=== PATIENT | female | born 1960 | race Caucasian/White ===

== ENCOUNTER 2024-08-01 15:10 | Inpatient (IN) | payer OTHER ==
[~2024-08-01] VITALS: Ht 167.6 cm; Wt 79.4 kg
[2024-08-01] VITALS (26 sets, daily range): BP systolic 87–153; BP diastolic 64–87
[2024-08-01] MEDS ORDERED: DULOXETINE HCL20 MG (15:25)
[2024-08-01] MEDS ORDERED: WELLBUTRIN150 M2 PO (15:26)
[2024-08-01 15:29] LABS: BASO% 0.8 % (0-3); EOS% 2.6 % (0-8); HEMOGLOBIN 13.7 g/dl (12.0-16.0); IMMATURE GRANULOCYTES 0.5 % (0.0-5.0); LYMPH% 14.9 % (15-41); MEAN CELL VOLUME 94.1 fL CALC (80.0-100.0); MEAN CORPUSCULAR HGB CONC 31.9 g/dL CAL (32.0-36.0); MONO% 9.7 % (2-13); NEUT# 5.99 thou/uL (2.00-7.15); NEUT% 71.5 % (42-76); RED BLOOD COUNT 4.57 mill/uL (4.20-5.60)
[2024-08-01 15:41] LABS: ALBUMIN 4.3 g/dL (3.2-5.0); ALKALINE PHOSPHATASE 57 u/l (38-126); ANION GAP 14 (6-22 (CALC)); BILIRUBIN, TOTAL 0.5 mg/dL (0.02-1.3); BUN 22 mg/dL (8-23); BUN/CREATININE RATIO 27 (12-20 (CALC)); CARBON DIOXIDE 23 mmol/l (22-30); CHLORIDE 109 mmol/l (95-108); CREATININE 0.8 mg/dL (0.5-1.0); ESTIMATED GFR 84 ML/MIN (>=90 (CALC)); LIPASE 43 u/l (23-300); SGOT/AST 26 u/l (9-36); SODIUM 143 mmol/l (137-146); TOTAL PROTEIN 6.9 g/dL (6.3-8.2)
--- NOTE | 2024-08-01 16:51 | NUR ---
DISCUSSED POC WITH PT.
[2024-08-01] MEDS ORDERED: ACETAMINOPHEN 325 MG/TAB PO PRN (19:50)
[2024-08-01] MEDS ORDERED: MAGNESIUM HYDROXIDE 30 ML UDC PO PRN (19:50)
[2024-08-01] MEDS ORDERED: MORPHINE SULFATE 4 MG/ML VIAL IV PRN (19:50)
[2024-08-01] MEDS ORDERED: NITROGLYCERIN 0.4 MG/TAB SL PRN (19:50)
[2024-08-01] MEDS ORDERED: Iopamidol 370 (Isovue) 76% 100 ML SDV IV SCH (20:35)
[2024-08-01] MEDS ORDERED: METOPROLOL TARTRATE 25 MG/TAB PO SCH (21:00)
[2024-08-01] MEDS ORDERED: ATORVASTATIN CALCIUM 40 MG/TAB PO SCH (21:00)
[2024-08-01] MEDS ORDERED: ENOXAPARIN SODIUM 40 MG/0.4 ML SYR SC SCH (21:00)
--- NOTE | 2024-08-01 21:04 | NUR ---
PT REPORT GIVEN TO RHIANNON ON [facility] FLOOR. PT TAKEN TO ROOM 278 WITH TELE #11 VIA WHEELCHAIR.
--- NOTE | 2024-08-01 21:47 | NUR ---
PATIENT ADMITTED TO [facility] ROOM 278 VIA WC. AMBULATED SELF TO BED IN ROOM WITHOUT DIFFICULTY. ALERT AND ORIENTED. ABLE TO MAKE NEEDS KNOWN. PRIMARY LANGUAGE IS DOMINICAN BUT IS ABLE TO COMMUNICATE WITH STAFF. ASSESSMENT COMPLETE. NO DISTRESS NOTED. NO COMPLAINTS OF CHEST PAIN. TELE IN PLACE. BM YESTERDAY. SKIN INTACT. SMALL DRY SCAB TO RIGHT CHEST AREA. NO EDEMA. ORIENTED TO ROOM, CALL DEAN AND SURROUNDINGS. FRESH ICE WATER AT BEDSIDE. DENIES NEEDING ANYTHING AT THIS TIME. BED IN LOW POSITION. CALL DEAN IN REACH.
--- NOTE | 2024-08-01 23:55 | NUR ---
PATIENT REMAINS RESTING IN BED. NO DISTRESS NOTED. NO COMPLAINTS OF CHEST PAIN. BED REMAINS IN LOW POSITION. CALL DEAN AND BELONGINGS IN REACH. PATIENT BROUGHT HOME CPAP WITH HER AND HAS IT ON.
[2024-08-02] VITALS (7 sets, daily range): BP systolic 120–137; BP diastolic 58–79
--- NOTE | 2024-08-02 04:39 | NUR ---
PATIENT REMAINS RESTING IN BED. DENIES NEEDING ANYTHING AT THIS TIME. BED REMAINS IN LOW POSITION. CALL DEAN IN REACH.
[2024-08-02 05:27] LABS: BASO% 0.6 % (0-3); EOS% 2.2 % (0-8); HEMATOCRIT 41.6 % (37.0-47.0); HEMOGLOBIN 13.6 g/dl (12.0-16.0); LYMPH% 25.3 % (15-41); MEAN CELL VOLUME 92.9 fL CALC (80.0-100.0); MEAN CORPUSCULAR HGB 30.4 pG CALC (26.0-32.0); MEAN CORPUSCULAR HGB CONC 32.7 g/dL CAL (32.0-36.0); MONO% 9.4 % (2-13); NEUT# 4.76 thou/uL (2.00-7.15); NEUT% 61.5 % (42-76); RED BLOOD COUNT 4.48 mill/uL (4.20-5.60); RED CELL DISTRI WIDTH 13.2 % (11.5-15.5)
[2024-08-02 05:47] LABS: BILIRUBIN, TOTAL 0.6 mg/dL (0.02-1.3); CREATININE 0.8 mg/dL (0.5-1.0); MAGNESIUM 2.2 mg/dL (1.6-2.3); POTASSIUM 4.4 mmol/l (3.5-5.1); TOTAL PROTEIN 6.4 g/dL (6.3-8.2)
[2024-08-02 05:59] LABS: CHOLESTEROL HDL RATIO 5.2 (<4.4 (CALC))
[2024-08-02] MEDS ORDERED: SODIUM CHLORIDE 0.9% 1,000 ML IV PRN (06:35)
--- NOTE | 2024-08-02 06:55 | NUR ---
REPORT RECEIVED FROM KRYSTLERN
[2024-08-02] MEDS ORDERED: DULOXETINE HCl 30 MG/CAP PO SCH (09:00)
[2024-08-02] MEDS ORDERED: buPROPion HCL 150 MG TAB SR PO SCH (09:00)
[2024-08-02] MEDS ORDERED: ASPIRIN 81 MG/TAB PO SCH (09:00)
[2024-08-02] MEDS ORDERED: CLOPIDOGREL BISULFATE 75 MG/TAB TAB PO SCH (09:00)
--- NOTE | 2024-08-02 09:00 | NUR ---
PT RESTING IN SEMI FOWLERS POSITION,A&O X3. PT DENIES ANY CURRENT PAIN OR DISCOMFORTS, PAIN SCALE AND REPORTING EDUCATED;ASSESSMENT COMPLETED;RESPIRATIONS EVEN AND UNLABORED ON RA,CLEAR LUNG SOUNDS;HOME CPAP AT BEDSIDE FOR QHS;ABDOMEN SOFT ON PALPATION AND ACTIVE IN ALL 4 QUADRANTS;STRONG PEDAL PULSES;SKIN INTACT;TELE MONITORING IN PLACE;EMS #18G TO LAC FLUSHED AND PATENT,SITE APPPEARS HEALTHY;PT DENIES ANY CURRENT NEEDS AND IS ENCOURAGED TO CALL FOR ASSISTANCE IF NEEDED;FALL PRECAUTIONS IN PLACE WITH BED IN THE LOWEST POSITION AND CALL LIGHT IN REACH;FREQUENT ROUNDS MADE.
--- NOTE | 2024-08-02 09:10 | NUR ---
CARDIOLOGY CONSULT COMPLETED AT THIS TIME- NOTIFIED.
--- NOTE | 2024-08-02 09:17 | NUR ---
AT BEDSIDE DISCUSSING POC WITH PT.
[2024-08-02] MEDS ORDERED: Heparin SODIUM (Porcine) 500 ML IV PRN (09:30)
[2024-08-02 10:00] LABS: ACT PARTIAL THROMBO TIME 23.4 SECONDS (20.0-32.5)
[2024-08-02 10:01] LABS: PROTHROMBIN TIME 10.7 SECONDS (9.0-12.5)
[2024-08-02] MEDS ORDERED: Heparin SODIUM (Porcine) 5,000 UNITS/ML SDV IV SCH (10:30)
--- NOTE | 2024-08-02 11:33 | NUR ---
HEPRAIN BOLUS OF 5000UNITS ADMINISTERED TO ABDOMEN SC PER ORDER. HEPRAIN LOW DOSE DRIP INITATED @ 950 TO EMS #18G TO LAC. VERIFICATION BY EVENS IRWIN WHEN INITATED. PT EDUCATED ON DRIP AND TO REPORT ANY S/S OF BLEEDING AND VERBALIZED UNDERSTANDING;FALL PRECAUTIONS REMAIN IN PLACE WITH CALL LIGHT IN REACH;FREQUENT ROUNDS MADE.
--- NOTE | 2024-08-02 12:21 | NUR ---
INFORMED MD BY CARDIOVASCULAR RADIOLOGIC TECHNOLOGIST RE: TROPONIN BEING 0.166
--- NOTE | 2024-08-02 14:33 | NUR ---
PT MEDICATED WITH TYLENOL 650MG PO FOR HEADACHE PAIN AT THIS TIME;FREQUENT ROUNDS MADE.
--- NOTE | 2024-08-02 15:16 | NUR ---
AT BEDSIDE DISCUSSING POC WITH PT.
[2024-08-02 15:47] LABS: ACT PARTIAL THROMBO TIME 34.6 SECONDS (20.0-32.5); PROTHROMBIN TIME 11.1 SECONDS (9.0-12.5)
--- NOTE | 2024-08-02 16:00 | NUR ---
PT RESTING IN SEMI FOWLERS POSITION WITH FAMILY AT BEDSIDE;RESPIRATIONS EVEN AND UNLABORED ON RA;PT REPORTS HEADACHE PAIN HAS SUBSIDED AT THIS TIME;TELE MONITORING IN PLACE;IV SITE TO LAC REMAINS PATENT INFUSING HEPRAIN DRIP PER ORDER; LAB RESULTS RECEIVED PT 11.1, INR 1.0, PTT 34.6. HEPRAIN DRIP TITRATED TO 1250 UNITS/HR PER HOSPITAL POLICY. TITRATION RATE VERIFIED WITH MOTOR CHECKER AND EVENS IRWIN. PT TO BE TRANSFERRED TO [facility] FOR HIGHER LEVEL OF CARE INCLUDING A CARDIAC CATH;PT WAS ACCEPTED BY FACILITY, WAITING ON BED ASSIGNMENT. PT DENIES ANY ADDITIONAL NEEDS AND IS ENCOURAGED TO CALL FOR ASSISTANCE IF NEEDED;CALL LIGHT IN REACH;FREQUENT ROUNDS MADE.
--- NOTE | 2024-08-02 19:15 | NUR ---
PATIENT OBSERVED SITTING UP IN BED. ALERT AND ABLE TO MAKE NEEDS KNOWN. ASSESSMENT COMPLETE. NO DISTRESS NOTED. NO COMPLAINTS OF CHEST PAIN. HEPARIN GTT REMAINS INFUSING PER FLOW SHEET. PATIENT DENIES NEEDING ANYTHING AT THIS TIME. BED REMAINS IN LOW POSITION. CALL DEAN IN REACH. AWAITING BED AT [facility].
--- NOTE | 2024-08-03 00:32 | NUR ---
PATIENT REMAINS RESTING IN BED. HOME CPAP ON. NO COMPLAINTS OF CHEST PAIN OR DISCOMFORT. NO SHORTNESS OF BREATH. HEPARIN GTT REMAINS INFUSING PER PROTOCOL.
[2024-08-03 03:17] LABS: BASO% 0.9 % (0-3); EOS% 4.3 % (0-8); HEMATOCRIT 45.5 % (37.0-47.0); HEMOGLOBIN 14.3 g/dl (12.0-16.0); IMMATURE GRANULOCYTES 1.2 % (0.0-5.0); LYMPH% 31.1 % (15-41); MEAN CELL VOLUME 95.6 fL CALC (80.0-100.0); MEAN CORPUSCULAR HGB CONC 31.4 g/dL CAL (32.0-36.0); MONO% 8.4 % (2-13); NEUT# 4.07 thou/uL (2.00-7.15); NEUT% 54.1 % (42-76); RED BLOOD COUNT 4.76 mill/uL (4.20-5.60); RED CELL DISTRI WIDTH 13.3 % (11.5-15.5)
[2024-08-03 03:44] LABS: ALBUMIN 4.2 g/dL (3.2-5.0); BILIRUBIN, TOTAL 0.5 mg/dL (0.02-1.3); CREATININE 0.7 mg/dL (0.5-1.0); MAGNESIUM 2.3 mg/dL (1.6-2.3); TOTAL PROTEIN 6.9 g/dL (6.3-8.2)
--- NOTE | 2024-08-03 04:05 | NUR ---
CALLED AND SPOKE TO TRANSFER CENTER FOR [facility] FOR BED UPDATE ON PATIENT. PER CENTER STILL AWAITING BED. NO BED ASSIGNED YET. AWAITING CALL BACK. WILL INFORM NURSING JOB BOSS.
[2024-08-03 04:11] VITALS: BP 116/69
--- NOTE | 2024-08-03 04:17 | NUR ---
NOTIFIED MD OF PATIENTS MOST RECENT TROP OF 0.227. PATIENT DENIES ANY CHEST PAIN. CONTINUES ON HEPARIN GTT PER PROTOCOL. ALSO INFORMED MD THAT I CALLED TRANSFER CENTER FOR UPDATE ON BED FOR PATIENT AND WAS TOLD PENDING BED STILL. NO NEW ORDERS RECEIVED AT THIS TIME.
--- NOTE | 2024-08-03 06:28 | NUR ---
[facility] CALLED BACK AND GAVE BED ASSIGNMENT. GIVING ALL INFORMATION TO DAYSHIFT NURSE TAKING OVER.
[2024-08-03 07:06] VITALS: BP 122/68
[2024-08-03 07:08] VITALS: BP 122/68
--- NOTE | 2024-08-03 07:11 | NUR ---
PT IS AOX4, RESPIRATIONS ARE EVEN AND UNLABORED, LUNGS ARE CLEAR, PT SITTING UP IN BED. [employer] TEAM MEMBER AT BEDISDE CHANGING HEPRIN BAG, CURRENTLY RINNING AT 1250.
--- NOTE | 2024-08-03 07:29 | NUR ---
TRANSPODT PICKING UP PT NOW. PATIENT SERVICE TECHNICIAN PST NURSE TRIED TO CALL REPORT BUT NO ANSWER.
--- NOTE | 2024-08-03 07:31 | NUR ---
CALLED NUMBER PROVIDED TO GIVE REPORT ON PATIENT AND NO ANSWER. LEFT MESSAGE TO CALL BACK. DAY SHIFT NURSE AWARE.
--- NOTE | 2024-08-03 07:36 | NUR ---
PT LEFT THE UNIT VIA TRANSPORT WITH BELONGINGS IN HAND.
--- NOTE | 2024-08-03 08:11 | NUR ---
REPORT CALLED TO [facility], GAVE REPORT TO NURSE DECEMBER.
== END 2024-08-03 07:36 | DRG 282 ==
LOC: ED 15:10 → ED-I 18:00 → ED 18:17 → MS2 18:19
PROVIDERS: Nurse Practitioner; ADMIT Student in an Organized Health Care Education/Training Program; ATTEND Student in an Organized Health Care Education/Training Program
DX: I21.4 Non-ST elevation (NSTEMI) myocardial infarction (principal); E78.5 Hyperlipidemia, unspecified; F32.A Depression, unspecified; Z87.891 Personal history of nicotine dependence
CPT/HCPCS: J1644; J1650; Q9967

== ENCOUNTER 2024-09-29 13:44 | Emergency (ER) | payer OTHER ==
[~2024-09-29] VITALS: Ht 167.6 cm; Wt 53.0 kg
[2024-09-29] VITALS (7 sets, daily range): BP systolic 128–169; BP diastolic 60–82
[~2024-09-29 13:44] MED LIST: DULOXETINE HCL20 MG; WELLBUTRIN150 M2 PO
[2024-09-29] MEDS ORDERED: ZETIA10 MG PO (14:05)
[2024-09-29 14:17] LABS: BASO% 0.7 % (0-3); EOS% 4.1 % (0-8); HEMOGLOBIN 13.8 g/dl (12.0-16.0); IMMATURE GRANULOCYTES 0.7 % (0.0-5.0); LYMPH% 25.3 % (15-41); MEAN CELL VOLUME 94.4 fL CALC (80.0-100.0); MEAN CORPUSCULAR HGB CONC 32.9 g/dL CAL (32.0-36.0); MONO% 9.9 % (2-13); NEUT# 4.2 thou/uL (2.00-7.15); NEUT% 59.3 % (42-76); RED BLOOD COUNT 4.45 mill/uL (4.20-5.60)
[2024-09-29 14:39] LABS: ALBUMIN 4.4 g/dL (3.2-5.0); ALKALINE PHOSPHATASE 52 u/l (38-126); ANION GAP 12 (6-22 (CALC)); BILIRUBIN, TOTAL 0.7 mg/dL (0.02-1.3); BUN 15 mg/dL (8-23); BUN/CREATININE RATIO 22 (12-20 (CALC)); CARBON DIOXIDE 26 mmol/l (22-30); CHLORIDE 106 mmol/l (95-108); CREATININE 0.7 mg/dL (0.5-1.0); ESTIMATED GFR 98 ML/MIN (>=90 (CALC)); POTASSIUM 4.1 mmol/l (3.5-5.1); SGOT/AST 33 u/l (9-36); SODIUM 139 mmol/l (137-146); TOTAL PROTEIN 7.1 g/dL (6.3-8.2)
== END 2024-09-29 15:15 | disposition home or self-care (01) | DRG 556 ==
LOC: ED 13:44
PROVIDERS: Nurse Practitioner Family
DX: M79.602 Pain in left arm (principal); M79.601 Pain in right arm; T46.6X5A Adverse effect of antihyperlipidemic and antiarteriosclerotic drugs, initial encounter; M50.30 Other cervical disc degeneration, unspecified cervical region

== ENCOUNTER 2024-10-11 14:37 | Emergency (ER) | payer OTHER ==
[~2024-10-11] VITALS: Ht 167.6 cm; Wt 79.0 kg
[~2024-10-11 14:37] MED LIST changes: +ZETIA10 MG PO
[2024-10-11] MEDS ORDERED: ORPHENADRINE CITRATE 30 MG/ML AMP IM ONE (18:20)
[2024-10-11] MEDS ORDERED: KETOROLAC TROMETHAMINE 30 MG/ML SDV IM ONE (18:20)
[2024-10-11] MEDS ORDERED: MOTRIN400 MG/TAB PO ×2 (20:09→21:17)
[2024-10-11] MEDS ORDERED: CYCLOBENZAPRINE10 MG PO ×2 (20:09→21:17)
[2024-10-11] MEDS ORDERED: PREDNISONE10 MG PO ×2 (20:09→21:17)
[2024-10-11] MEDS ORDERED: NEURONTIN100 MG PO ×2 (20:26→21:17)
[2024-10-11 21:05] VITALS: BP 124/81
== END 2024-10-11 21:05 | disposition home or self-care (01) | DRG 552 ==
LOC: ED 14:37
DX: M47.22 Other spondylosis with radiculopathy, cervical region (principal); M48.02 Spinal stenosis, cervical region; M25.78 Osteophyte, vertebrae; I25.2 Old myocardial infarction; Z95.5 Presence of coronary angioplasty implant and graft
CPT/HCPCS: J1100; J2360

== ENCOUNTER 2024-10-30 05:32 | Emergency (ER) | payer OTHER ==
[~2024-10-30] VITALS: Ht 167.6 cm; Wt 94.0 kg
[~2024-10-30 05:32] MED LIST changes: +CYCLOBENZAPRINE10 MG PO; +MOTRIN400 MG/TAB PO; +NEURONTIN100 MG PO; +PREDNISONE10 MG PO
[2024-10-30 06:08] LABS: BASO% 0.5 % (0-3); EOS% 5.3 % (0-8); HEMOGLOBIN 12.4 g/dl (12.0-16.0); LYMPH% 13.8 % (15-41); MEAN CELL VOLUME 94.3 fL CALC (80.0-100.0); MEAN CORPUSCULAR HGB 30.8 pG CALC (26.0-32.0); MEAN CORPUSCULAR HGB CONC 32.6 g/dL CAL (32.0-36.0); MONO% 7.3 % (2-13); NEUT# 6.8 thou/uL (2.00-7.15); NEUT% 72.1 % (42-76); RED BLOOD COUNT 4.03 mill/uL (4.20-5.60); RED CELL DISTRI WIDTH 13.2 % (11.5-15.5)
[2024-10-30 06:25] LABS: ALBUMIN 3.7 g/dL (3.2-5.0); BILIRUBIN, TOTAL 0.5 mg/dL (0.02-1.3); CREATININE 0.7 mg/dL (0.5-1.0); POTASSIUM 4.1 mmol/l (3.5-5.1); TOTAL PROTEIN 6.3 g/dL (6.3-8.2)
[2024-10-30] MEDS ORDERED: KETOROLAC TROMETHAMINE 15 MG/ML SDV IV ONE (07:25)
[2024-10-30 08:49] LABS: URINE BILIRUBIN - DIPSTICK Negative (NEGATIVE); URINE BLOOD DIPSTICK Negative (NEGATIVE); URINE GLUCOSE - DIPSTICK Negative (NEGATIVE); URINE KETONE Negative (NEGATIVE); URINE LEUK ESTERASE Trace (NEGATIVE); URINE NITRITE - DIPSTICK Negative (Negative); URINE PH 7.5 (4.5-8.0); URINE PROTEIN - DIPSTICK Negative (NEG-TRACE); URINE SPECIFIC GRAVITY 1.015; URINE UROBILINOGEN - DIPSTICK 0.2 E.U./dL (0.2)
[2024-10-30 08:54] LABS: URINE COLOR Yellow
[2024-10-30] MEDS ORDERED: VIGAMOX OD (09:15)
[2024-10-30] MEDS ORDERED: BENZONATATE200 MG PO (09:15)
[2024-10-30] MEDS ORDERED: DOXYCYC MONO100 M3 PO (09:15)
[2024-10-30] MEDS ORDERED: HYDROCO/APAP1 TA9 PO (09:15)
[2024-10-30] MEDS ORDERED: CHERATUSSIN PO (09:15)
[2024-10-30 09:22] VITALS: BP 105/55
== END 2024-10-30 09:27 | disposition home or self-care (01) | DRG 556 ==
LOC: ED 05:32
PROVIDERS: Emergency Medicine
DX: M79.81 Nontraumatic hematoma of soft tissue (principal); H10.9 Unspecified conjunctivitis; J06.9 Acute upper respiratory infection, unspecified; I25.10 Atherosclerotic heart disease of native coronary artery without angina pectoris; I10 Essential (primary) hypertension; Z95.5 Presence of coronary angioplasty implant and graft; I25.2 Old myocardial infarction; Z79.82 Long term (current) use of aspirin; Z79.02 Long term (current) use of antithrombotics/antiplatelets
CPT/HCPCS: J1885; Q9967